=== PATIENT | male | born 1990 | race Hispanic/Latino ===

== ENCOUNTER 2024-07-06 12:13 | Emergency (ER) | payer SELFPAY ==
[2024-07-06 13:08] LABS: Absolute Basophils 0.1 K/uL (0-0.5); Absolute Eosinophils 0.2 K/uL (0-0.5); Absolute Lymphocytes (CBC) 1.8 K/uL (0.7-4.9); Absolute Monocytes 0.6 K/uL (0.1-1.3); Absolute Neutrophil 5.3 K/uL (1.8-8.0); Basophils % 0.6 % (0-1.3); Hematocrit 44.3 % (39.6-49.0); Hemoglobin 14.3 g/dL (13.6-17.9); Lymphocytes % 22.5 % (15.3-44.8); MCH 27.4 pg (27.0-35.0); MCHC 32.4 g/dL (32.0-36.0); MCV 84.4 fL (80-100); MPV 7.4 fL (7.6-11.3); Monocytes % 7.7 % (3.3-12.3); Neutrophils % 66.2 % (41.7-73.7); Platelets 373 thou/uL (152-406); RBC Red Blood Cell Count 5.24 M/uL (4.33-5.43); Red Cell Distribution Width 13.3 % (12.1-15.2)
[2024-07-06 13:26] LABS: Albumin 3.3 g/dL (3.4-5.0); Albumin/Globulin Ratio 0.8 (1.1-1.8); Bilirubin Total 0.5 mg/dL (0.2-1.0); Globulin 3.9 g/dL (2.3-3.5); Protein, Total 7.2 g/dL (6.4-8.2)
--- NOTE | 2024-07-06 14:12 | RAD REPORT ---
EXAMINATION: CT ABDOMEN AND PELVIS WITH CONTRAST CLINICAL INDICATION: Abdominal pain TECHNIQUE: CT abdomen and pelvis was performed, after the administration of 100 cc Isovue-300.. Sagit valeria and coronal reconstructions were obtained. One or more of the following dose reduction techniques were used: Automated exposure control, adjustment of the mA and kV according to patient si ze, and iterative reconstruction. Unless otherwise specified, incidental findings do not require dedicated imaging follow-up. [id number]. Oral contrast was not given which limits evaluation of bowel and appendix. COMPARISON: .None FINDINGS: Mild fatty liver. The spleen, pancreas, adrenals and kidneys appear unremarkable No evidence of diverticulitis. Normal appendix. Small right inguinal hernia. Small umbilical hernia Cholelithiasis. Gallbladder wall is not thickened. : IMPRESSION: Cholelithiasis without evidence of cholecystitis
--- NOTE | 2024-07-06 14:45 | EDPHYS ---
Physician Documentation [facility] Name: Tej Cedeño Age: 34 yrs Sex: Male : 1990 Arrival Date: 07/06/2024 Time: 12:13 Bed 4 Private MD: ED Physician Chidi Miles HPI: 07/06 17:43 This 34 yrs old Male presents to ER via Ambulatory with complaints of Rectal dr5 Pain. 17:49 Patient is a 34-year-old male presenting with rectal pain that started last Sunday. dr5 Patient states his girlfriend put Preparation H that mildly improved symptoms. Patient denies rectal bleeding, fever, testicular pain.. Historical: - Allergies: 12:25 No Known Allergies; cm10 - Home Meds: 12:25 None [Active]; cm10 - PMHx: 12:25 None; cm10 - Immunization history:: Adult Immunizations up to date. - Infectious Disease History:: Denies. - Social history:: Smoking status: Patient denies any tobacco usage or history of. ROS: 17:49 Constitutional: as per hpi dr5 Exam: 17:49 Constitutional: This is a well developed, well nourished patient who is awake, alert, dr5 and in no acute distress. Head/Face: Normocephalic, atraumatic. Eyes: Pupils equal round and reactive to light, extra-ocular motions intact. Lids and lashes normal. Conjunctiva and sclera are non-icteric and not injected. Cornea within normal limits. Periorbital areas with no swelling, redness, or edema. Neck: Trachea midline, no thyromegaly or masses palpated, and no cervical lymphadenopathy. Supple, full range of motion without nuchal rigidity, or vertebral point tenderness. No Meningismus. Chest/axilla: Normal chest wall appearance and motion. Nontender with no deformity. No lesions are appreciated. Cardiovascular: Regular rate and rhythm with a normal S1 and S2. Normal PMI, no JVD. No pulse deficits. Respiratory: Lungs have equal breath sounds bilaterally, clear to auscultation. No rales, rhonchi or wheezes noted. No increased work of breathing, no retractions or nasal flaring. 17:49 Neuro: Awake and alert, GCS 15, oriented to person, place, time, and situation. Cranial nerves II-XII grossly intact. Motor strength 5/5 in all extremities. Sensory grossly intact. Cerebellar exam normal. Normal gait. 17:49 Abdomen/GI: Inspection: obese Bowel sounds: normal, Palpation: abdomen is soft and non-tender, in all quadrants, 17:49 : Rectal exam: Rectal tone: normal, Perineal sensation Normal Stool: hemorrhoid(s), are not appreciated, no acute changes, mass, is not appreciated, fissure, is not appreciated, Claribel Grande. Vital Signs: 12:24 BP 135 / 90; Pulse 100; Resp 15; Temp 97.2(TE); Pulse Ox 95% on R/A; Weight 158.76 kg; cm10 Height 6 ft. 1 in. ; Pain 10/10; 14:30 BP 127 / 85; Pulse 91; Resp 16; Temp 97.5; Pulse Ox 97% ; bp 12:24 Body Mass Index 46.18 (158.76 kg, 185.42 cm) cm10 12:24 Pain Scale: Adult cm10 MDM: 13:34 Medical Screening Exam initiated dr5 17:49 Differential diagnosis: hemorrhoids, fissure, abscess. Data reviewed: vital signs, dr5 nurses notes, lab test result(s), radiologic studies, CT scan. I considered the following discharge prescriptions or medication management in the emergency department Medications were administered in the Emergency Department. See MAR. Care significantly affected by the following Social Determinants of Health: Poor access to healthcare and/or lack of insurance, Poor access to transportation, Problems related to employment. 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 ED course: Labs and CT results printed and reviewed with patient. Exam did not show any acute findings. Will give antibiotics in case patient has developing abscess. Recommended patient follow-up with primary care doctor and GI doctor as needed.. 07/06 12:26 Order name: CBC with Diff; Complete Time: 13:37 cm10 07/06 12:26 Order name: CMP; Complete Time: 13:37 cm10 07/06 12:26 Order name: Lipase; Complete Time: 13:37 cm10 07/06 13:01 Order name: CT Abd/Pelvis - IV Contrast Only; Complete Time: 14:14 bp 07/06 12:26 Order name: IV Saline Lock; Complete Time: 12:58 cm10 07/06 12:26 Order name: Labs collected and sent; Complete Time: 12:58 cm10 Administered Medications: No medications were administered Disposition Summary: 07/06/24 14:44 Discharge Ordered Notes: Location: Home dr5 Condition: Stable dr5 Diagnosis - Other cholelithiasis without obstruction dr5 - Unilateral inguinal hernia, without obstruction or gangrene dr5 Followup: dr5 - With: Emergency Department - When: As needed - Reason: Worsening of condition Followup: dr5 - With: Private Physician - When: 1 - 2 days - Reason: Recheck today's complaints, Continuance of care, Re-evaluation by your physician Discharge Instructions: - Discharge Summary Sheet dr5 - Rectal Bleeding dr5 - Cholelithiasis dr5 - Colorectal Cancer Screening dr5 Forms: - Work release form dr5 - Medication Reconciliation Form dr5 - Antibiotic Education dr5 - Patient Portal Instructions dr5 - Leadership Thank You Letter dr5 Prescriptions: - Augmentin 875-125 mg Oral Tablet - take 1 tablet ORAL route every 12 hours for 10 days; 20 tablet; Refills: 0, dr5 Product Selection Permitted - Tramadol 50 mg Oral Tablet - take 1 tablet ORAL route every 8 hours as needed; 12 tablet; Refills: 0, dr5 Product Selection Permitted Signatures: Dispatcher [employer] Yolanda Easton RN RN cm10 Jg Ya, SCI[employer] GLASS [employer]OWER-C SCIENTIFIC [employer]ASS [employer]OWER-Cdr5 Corrections: (The following items were deleted from the chart) 13: 13:01 Abdomen Pelvis W Con+CT.RAD.BRZ ordered. EDMS EDMS
--- NOTE | 2024-07-06 14:45 | ER ---
Nurse's Notes [facility] Name: Tej Cedeño Age: 34 yrs Sex: Male : 1990 Arrival Date: 07/06/2024 Time: 12:13 Bed 4 Private MD: Diagnosis: Other cholelithiasis without obstruction;Unilateral inguinal hernia, without obstruction or gangrene Presentation: 07/06 12:24 Chief complaint: Patient states: RECTAL PAIN AND RLQ ABDOMINAL PAIN ONSET SUNDAY. PT cm10 STATES THAT THE RECTAL PAIN IS WORSE WHEN TRYING TO USE THE RESTROOM AND WHEN SITTING. Coronavirus screen: Client denies travel out of the [place] in the last 14 days. Ebola Screen: Patient denies travel to an Ebola-affected area in the 21 days before illness onset. No symptoms or risks identified at this time. Initial Sepsis Screen: Does the patient meet any 2 criteria? No. Patient's initial sepsis screen is negative. Does the patient have a suspected source of infection? No. Patient's initial sepsis screen is negative. Risk Assessment: Do you want to hurt yourself or someone else? Patient reports no desire to harm self or others. Onset of symptoms was July 06, 2024. 12:24 Method Of Arrival: Ambulatory cm10 12:24 Acuity: DOROTHY 3 cm10 Triage Assessment: 12:25 General: Appears in no apparent distress. uncomfortable, Behavior is calm, cooperative. cm10 Neuro: No deficits noted. Level of Consciousness is awake, alert, obeys commands, Oriented to person, place, time, situation, Appropriate for age. Respiratory: No deficits noted. Airway is patent Respiratory effort is even, unlabored, Respiratory pattern is regular, symmetrical. Musculoskeletal: No deficits noted. Range of motion: intact in all extremities. Historical: - Allergies: 12:25 No Known Allergies; cm10 - Home Meds: 12:25 None [Active]; cm10 - PMHx: 12:25 None; cm10 - Immunization history:: Adult Immunizations up to date. - Infectious Disease History:: Denies. - Social history:: Smoking status: Patient denies any tobacco usage or history of. Screenin:30 [facility] ED Fall Risk Assessment (Adult) History of falling in the last 3 months, bp including since admission No falls in past 3 months (0 pts) Confusion or Disorientation No (0 pts) Intoxicated or Sedated No (0 pts) Impaired Gait No (0 pts) Mobility Assist Device Used No (0 pt) Altered Elimination No (0 pt) Score/Fall Risk Level 0 - 2 = Low Risk Oriented to surroundings. Abuse screen: Denies threats or abuse. Denies injuries from another. Nutritional screening: No deficits noted. Tuberculosis screening: No symptoms or risk factors identified. Assessment: 12:30 General: Appears in no apparent distress. uncomfortable, obese. bp 14:30 Reassessment: Patient appears in no apparent distress at this time. Patient is alert, bp oriented x 3, equal unlabored respirations, skin warm/dry/pink. Vital Signs: 12:24 BP 135 / 90; Pulse 100; Resp 15; Temp 97.2(TE); Pulse Ox 95% on R/A; Weight 158.76 kg; cm10 Height 6 ft. 1 in. ; Pain 10/10; 14:30 BP 127 / 85; Pulse 91; Resp 16; Temp 97.5; Pulse Ox 97% ; bp 12:24 Body Mass Index 46.18 (158.76 kg, 185.42 cm) cm10 12:24 Pain Scale: Adult cm10 ED Course: 12:14 Patient arrived in ED. mr 12:25 Triage completed. cm10 12:25 Arm band placed on right wrist. Patient placed in waiting room. cm10 12:58 Patient placed in an exam room, on a stretcher. ll1 12:58 CBC with Diff Sent. cm10 12:58 CMP Sent. cm10 12:58 Lipase Sent. cm10 12:58 Initial lab(s) drawn, by tx, sent to lab. Inserted saline lock: 20 gauge in right cm10 antecubital area, using aseptic technique. Blood collected. Flushed with 10 mL NS. 12:59 Dany Johansen, ATIYA is Primary Nurse. bp 13:34 Jg Ya FNP-C is PHCP. dr5 13:34 Chidi Miles MD is Attending Physician. dr5 13:56 CT Abd/Pelvis - IV Contrast Only In Process Unspecified. EDMS 14:30 Patient has correct armband on for positive identification. bp 14:30 No provider procedures requiring assistance completed. IV discontinued, intact, bp bleeding controlled, No redness/swelling at site. Pressure dressing applied. Administered Medications: No medications were administered Medication: 14:30 VIS not applicable for this client. bp Outcome: 14:44 Discharge ordered by . dr5 15:03 Discharged to home ambulatory, with family, bp 15:03 Condition: stable 15:03 Discharge instructions given to patient, Instructed on discharge instructions, follow up and referral plans. medication usage, Demonstrated understanding of instructions, follow-up care, medications, Prescriptions given X 2, 15:04 Patient left the ED. bp Signatures: Dispatcher [employer] EDAZ Shanthi Mir, Gerald Reg mr Dany Johansen, RN RN bp Shubham Grande RN RN ll1 Yolanda Fletcher RN RN cm10 Jg Ya, ASPHALT COATER-C ASPHALT COATER-Cdr5
[2024-07-06 15:28] VITALS: BP 127/85; TEMP 97.5; O2SAT 97
== END 2024-07-06 15:04 | disposition home or self-care (01) ==
LOC: ER 12:13
DX: K80.80 Other cholelithiasis without obstruction (principal); K40.90 Unilateral inguinal hernia, without obstruction or gangrene, not specified as recurrent
CPT/HCPCS: 36415; 74177; 80053; 83690; 85025; 99284; Q9967

== ENCOUNTER 2024-08-04 21:48 | Emergency (ER) | payer BC, SELFPAY ==
[2024-08-04] MEDS ORDERED: KETOROLAC 30 MG/ML INJ ONE (21:59)
[2024-08-04] MEDS ORDERED: ONDANSETRON 4 MG/2 ML VIAL ONE (21:59)
[2024-08-04] MEDS ORDERED: MORPHINE 4 MG/ML SYR ONE ×2 (21:59→23:51)
[2024-08-04 22:31] LABS: Absolute Basophils 0.1 K/uL (0-0.5); Absolute Eosinophils 0.2 K/uL (0-0.5); Absolute Lymphocytes (CBC) 2.7 K/uL (0.7-4.9); Absolute Monocytes 0.8 K/uL (0.1-1.3); Absolute Neutrophil 6.6 K/uL (1.8-8.0); Eosinophils % 2.2 % (0-4.4); Hemoglobin 14.9 g/dL (13.6-17.9); MCH 27.7 pg (27.0-35.0); MCHC 33.8 g/dL (32.0-36.0); MCV 82.2 fL (80-100); MPV 7.3 fL (7.6-11.3); Monocytes % 7.6 % (3.3-12.3); Neutrophils % 63.2 % (41.7-73.7); Platelets 378 thou/uL (152-406); RBC Red Blood Cell Count 5.36 M/uL (4.33-5.43); Red Cell Distribution Width 13.2 % (12.1-15.2)
[2024-08-04 22:42] LABS: Albumin 3.5 g/dL (3.4-5.0); Albumin/Globulin Ratio 0.8 (1.1-1.8); Anion Gap 8.6 mEq/L (5.0-15.0); Bilirubin Total 0.6 mg/dL (0.2-1.0); Globulin 4.4 g/dL (2.3-3.5); Potassium 3.6 mEq/L (3.5-5.1); Protein, Total 7.9 g/dL (6.4-8.2)
[2024-08-04] MEDS ORDERED: KETAMINE HCL IN 0.9 % NACL 50 MG/5 ML SYRINGE IV ONE (23:05)
--- NOTE | 2024-08-05 00:26 | RAD REPORT ---
EXAM: CT abdomen and pelvis without intravenous contrast CLINICAL DATA: 34 years Male FLANK PAIN TECHNICAL DATA: Axial CT imaging of the abdomen and pelvis was performed without oral or intravenous contrast. Sagi ttal and coronal reconstructed images were then performed. The CT study is performed according to ALARA (as low as reasonably achievable) or ALARA/IMAGE GENTLY, with automatic adjustment of mA and/or kV according to patient size. Performed on: 08/04/2024 at 10:35 PM Comparison: CT abdomen and pelvis with contrast performed on 07/06/2024. FINDINGS: Lung bases: There are occasional calcified granulomata within the lung bases. There is a 4 mm noncalc ified subpleural nodule along the left lateral hemithorax (series 201, image 2), likely benign. The lung bases are otherwise clear. The heart is normal in size. Liver: The liver is normal in size and configuration. No focal hepatic abnormalities are appreciated on this unenhanced scan. There is decreased attenuation of the liver consistent with hepatic steatosis. Spleen: The spleen is normal in size, configuration and attenuation. No focal splenic abnormalities a re appreciated on this unenhanced scan. Gallbladder and bile duct: The gallbladder is well-distended and contains a 1.1 cm gallstone in the neck of the gallbladder. There is no biliary ductal dilatation. Pancreas: The pancreas is grossly normal in size and configuration. Adrenal Glands: The adrenal glands are normal in size and configuration. Kidneys: The kidneys are normal in size and configuration. There is no evidence of hydronephrosis. Th ere is no evidence of nephrolithiasis. No focal renal abnormalities are identified. Stomach: The stomach is grossly normal. There is no definite hiatal hernia. Bowel: The bowel gas pattern is non specific and non obstructive. Appendix: The appendix is normal. Free air: There is no evidence of free air. Free fluid: There is no evidence of free fluid. Vasculature: The aorta is normal in caliber and contour. The inferior vena cava is grossly unremarkab le. Lymphadenopathy: No pathologic lymphadenopathy is identified. Bladder: The bladder is incompletely distended on this examination.. Reproductive: The prostate gland is grossly within normal limits. Bones: No acute osseous abnormalities are identified. Soft tissues: No acute soft tissue abnormalities are identified. There is a small fat-containing vent ral umbilical hernia. IMPRESSION: 1. No evidence of acute intra-abdominal or intrapelvic pathology. There is no evidence of urinary t ract calcification or urinary tract obstruction. 2. Cholelithiasis without evidence of biliary ductal dilatation. 3. Fatty infiltration of the liver. 4. Evidence of prior granulomatous disease. 5. Small fat-containing ventral umbilical hernia. Electronically signed by: Larissa Marshall DO 08/05/2024 12:20 AM [facility] Due to temporary technical issues with the PACS/[employer] reporting system, reports are being tristin d by the in-house radiologist without review as a courtesy to ensure prompt reporting the interpreting radiologist is fully responsible for the content of the report. Transcribed Date/Time: 08/05/2024 12:26 AM
--- NOTE | 2024-08-05 00:43 | EDPHYS ---
Physician Documentation [facility] Name: Tej Cedeño Age: 34 yrs Sex: Male : 1990 Arrival Date: 08/04/2024 Time: 21:48 Bed 2 Private MD: ED Physician Juan Jose Jamil HPI: 08/04 22:24 This 34 yrs old Male presents to ER via Wheelchair with complaints of Back ec2 Pain, Abdominal Pain, Possible Kidney Stone. 22:24 Patient arrives today for evaluation of R flank pain. Patient reports pain started in ec2 the right flank into the right abdomen. No reported urinary complaints. No significant medical problems. No history of kidney stones.. Historical: - Allergies: 21:58 No Known Allergies; ha1 - Home Meds: 21:58 adipex [Active]; ha1 - PMHx: 21:58 None; ha1 - Immunization history:: Adult Immunizations up to date. - Infectious Disease History:: Denies. - Social history:: Smoking status: Patient denies any tobacco usage or history of. ROS: 22:24 Constitutional: as per hpi ec2 Exam: 22:24 Constitutional: GEN: NAD Head: atraumatic Eyes: EOMI Ears: External ears are ec2 normal. CV: regular rate LUNGS: no respiratory distress ABD: non-distended, soft, tender in the right abdomen, right CVA TTP. SKIN: no evidence of rashes MSK: no evidence of trauma Vital Signs: 21:57 Weight 163.29 kg; Height 6 ft. 0 in. ; ha1 23:09 BP 129 / 105; Pulse 111; Resp 18 S; Pulse Ox 99% on R/A; br2 23:10 BP 120 / 94; Pulse 94; Resp 18; Pulse Ox 94% ; Pain 7/10; br2 08/05 00:10 BP 131 / 89; Pulse 83; Resp 18; Pulse Ox 93% on R/A; Pain 0/10; br2 08/04 21:57 Body Mass Index 48.82 (163.29 kg, 182.88 cm) ha1 23:10 Pain Scale: Adult br2 08/05 00:10 Pain Scale: Adult br2 MDM: 08/04 21:51 Medical Screening Exam initiated ec2 22:24 Data reviewed: vital signs, nurses notes. ED course: Patient arrives today for right ec2 flank pain. Examination of abdominal findings as above. Lab work, urine studies, CT imaging ordered. Differential diagnosis includes processes such as ureteral stone, urinary tract infection, diverticulitis.. 08/05 00:42 ED course: CT imaging nonactionable. Will refer to Dr. Fletcher for gallbladder ec2 evaluation. Will discharge home. Return precautions given.. 08/04 21:54 Order name: CBC with Diff; Complete Time: 23:03 ec2 08/04 21:54 Order name: CMP; Complete Time: 23:03 ec2 08/04 21:54 Order name: Lipase; Complete Time: 23:03 ec2 08/04 21:54 Order name: CT Abd/Pelvis - Without Contrast ec2 08/04 21:54 Order name: IV Saline Lock; Complete Time: 22:13 ec2 08/04 21:54 Order name: Labs collected and sent; Complete Time: 22:13 ec2 08/04 21:54 Order name: NPO; Complete Time: 22:14 ec2 Administered Medications: 08/04 22:00 Drug: TORadol - Ketorolac IVP 15 mg IVP once Route: IVP; Site: right antecubital; jj7 22:30 Follow up: Response: No adverse reaction br2 22:00 Drug: Ondansetron IVP 4 mg IVP once; over 2 minutes Route: IVP; Site: right antecubital;jj7 22:30 Follow up: Response: No adverse reaction br2 22:00 Drug: morphine IVP or IV 4 mg IVP once over 4 mins Route: IVP; Infused Over: 4 mins; jj7 Site: right antecubital; 22:30 Follow up: Response: No adverse reaction br2 23:08 Drug: Ketamine IVP 25 mg IVP once Route: IVP; Site: right antecubital; br2 23:55 Drug: morphine IVP or IV 8 mg IVP once over 4 mins Route: IVP; Infused Over: 4 mins; br2 Site: right antecubital; Disposition Summary: 08/05/24 00:43 Discharge Ordered Notes: Location: Home ec2 Condition: Stable ec2 Diagnosis - Other cholelithiasis without obstruction ec2 Followup: ec2 - With: Abraham Fletcher MD - When: - Reason: Recheck today's complaints Discharge Instructions: - Discharge Summary Sheet ec2 - Cholelithiasis ec2 Forms: - Work release form ec2 - Family Work Release ec2 - Medication Reconciliation Form ec2 - Antibiotic Education ec2 - Prescription Opioid Use ec2 - Patient Portal Instructions ec2 - Leadership Thank You Letter ec2 Prescriptions: - acetaminophen-codeine 300-30 mg Oral tablet - take 1 tablet ORAL route every 6 hours; 10 tablet; Refills: 0, Product ec2 Selection Permitted Signatures: Dispatcher [employer] Kelsi Enrique RN RN ha1 Gabino Lee RN RN jj7 Juan Jose Jamil MD MD ec2 Tanesha Connell RN RN br2
--- NOTE | 2024-08-05 00:43 | ER ---
Nurse's Notes [facility] Name: Tej Cedeño Age: 34 yrs Sex: Male : 1990 Arrival Date: 08/04/2024 Time: 21:48 Bed 2 Private MD: Diagnosis: Other cholelithiasis without obstruction Presentation: 08/04 21:57 Chief complaint: Patient states: sudden onset of right flank pain. Coronavirus screen: ha1 Client denies travel out of the [place] in the last 14 days. Ebola Screen: No symptoms or risks identified at this time. Initial Sepsis Screen: Does the patient meet any 2 criteria? No. Patient's initial sepsis screen is negative. Does the patient have a suspected source of infection? No. Patient's initial sepsis screen is negative. Risk Assessment: Do you want to hurt yourself or someone else? Patient reports no desire to harm self or others. Onset of symptoms was August 04, 2024. 21:57 Method Of Arrival: Wheelchair ha1 21:57 Acuity: DOROTHY 3 ha1 Historical: - Allergies: 21:58 No Known Allergies; ha1 - Home Meds: 21:58 adipex [Active]; ha1 - PMHx: 21:58 None; ha1 - Immunization history:: Adult Immunizations up to date. - Infectious Disease History:: Denies. - Social history:: Smoking status: Patient denies any tobacco usage or history of. Screenin:05 [facility] ED Fall Risk Assessment (Adult) History of falling in the last 3 months, br2 including since admission No falls in past 3 months (0 pts) Confusion or Disorientation No (0 pts) Intoxicated or Sedated No (0 pts) Impaired Gait No (0 pts) Mobility Assist Device Used No (0 pt) Altered Elimination No (0 pt) Score/Fall Risk Level 0 - 2 = Low Risk Oriented to surroundings. Abuse screen: Denies threats or abuse. Denies injuries from another. Nutritional screening: No deficits noted. Tuberculosis screening: No symptoms or risk factors identified. Assessment: 22:05 Reassessment: Patient and/or family updated on plan of care and expected duration. Pain br2 level reassessed. Patient is alert, oriented x 3, equal unlabored respirations, skin warm/dry/pink. General: Appears uncomfortable, obese, Behavior is anxious. Pain: Complains of pain in right low back Pain radiates to right lower quadrant AND TO RIGHT LOWER LEG Pain currently is 10 out of 10 on a pain scale. Neuro: Perez Agitation-Sedation Scale (RASS): 0 - Alert and Calm Level of Consciousness is awake, alert, obeys commands, Oriented to person, place, time, situation. Cardiovascular: Capillary refill < 3 seconds. Respiratory: Airway is patent Respiratory effort is even, unlabored, Respiratory pattern is regular, symmetrical. GI: Reports lower abdominal pain. 22:05 : No signs and/or symptoms were reported regarding the genitourinary system. Derm: No br2 signs and/or symptoms reported regarding the dermatologic system. 08/05 00:13 Reassessment: Patient and/or family updated on plan of care and expected duration. Pain br2 level reassessed. Patient is alert, oriented x 3, equal unlabored respirations, skin warm/dry/pink. SLEEPING WITH AT BESIDE Patient states feeling better. Patient states symptoms have improved. Vital Signs: 08/04 21:57 Weight 163.29 kg; Height 6 ft. 0 in. ; ha1 23:09 BP 129 / 105; Pulse 111; Resp 18 S; Pulse Ox 99% on R/A; br2 23:10 BP 120 / 94; Pulse 94; Resp 18; Pulse Ox 94% ; Pain 7/10; br2 08/05 00:10 BP 131 / 89; Pulse 83; Resp 18; Pulse Ox 93% on R/A; Pain 0/10; br2 08/04 21:57 Body Mass Index 48.82 (163.29 kg, 182.88 cm) ha1 23:10 Pain Scale: Adult br2 08/05 00:10 Pain Scale: Adult br2 ED Course: 08/04 21:51 Patient arrived in ED. gm2 21:51 Juan Jose Jaiml MD is Attending Physician. ec2 21:58 Triage completed. ha1 22:05 Inserted saline lock: 20 gauge in right antecubital area, using aseptic technique. br2 Blood collected. Flushed with 10 mL NS. 22:05 Patient has correct armband on for positive identification. Bed in low position. Call br2 light in reach. Side rails up X 1. Provided Education on: PLAN OF CARE. 22:12 Gabino Lee RN is Primary Nurse. jj7 22:13 CBC with Diff Sent. jj7 22:13 CMP Sent. jj7 22:13 Lipase Sent. jj7 22:31 CT Abd/Pelvis - Without Contrast In Process Unspecified. EDMS 08/05 00:42 IV discontinued, intact, bleeding controlled, No redness/swelling at site. Pressure br2 dressing applied. 00:43 Abraham Fletcher MD is Referral Physician. ec2 00:56 No provider procedures requiring assistance completed. br2 Administered Medications: 08/04 22:00 Drug: TORadol - Ketorolac IVP 15 mg IVP once Route: IVP; Site: right antecubital; jj7 22:30 Follow up: Response: No adverse reaction br2 22:00 Drug: Ondansetron IVP 4 mg IVP once; over 2 minutes Route: IVP; Site: right antecubital;jj7 22:30 Follow up: Response: No adverse reaction br2 22:00 Drug: morphine IVP or IV 4 mg IVP once over 4 mins Route: IVP; Infused Over: 4 mins; jj7 Site: right antecubital; 22:30 Follow up: Response: No adverse reaction br2 23:08 Drug: Ketamine IVP 25 mg IVP once Route: IVP; Site: right antecubital; br2 23:55 Drug: morphine IVP or IV 8 mg IVP once over 4 mins Route: IVP; Infused Over: 4 mins; br2 Site: right antecubital; Medication: 08/05 01:00 VIS not applicable for this client. br2 Outcome: 00:42 Discharged to home ambulatory, br2 00:42 Condition: improved 00:42 Discharge instructions given to patient, family, Instructed on discharge instructions, follow up and referral plans. Demonstrated understanding of instructions, follow-up care, medications, Prescriptions given X 1, 00:43 Discharge ordered by . ec2 01:00 Patient left the ED. br2 Signatures: Dispatcher [employer] EDOK Kelsi Wells RN RN ha1 Gabino Lee RN RN jj7 Juan Jose Jamil MD MD ec2 Krystin Dempsey gm2 Tanesha Connell RN RN br2 Corrections: (The following items were deleted from the chart) 08/04 22:00 21:57 Chief complaint: Patient states: left flank pain ha1 ha1 22:16 22:05 Pain: Complains of pain in right low back Pain radiates to right lower quadrant br2 Pain currently is 10 out of 10 on a pain scale. br2 08/05 00:15 00:10 BP 131 / 89; Pulse 8bpm; Resp 18bpm; Pulse Ox 93% RA; Pain 0/10, Adult; br2 br2
[2024-08-05 17:18] VITALS: BP 131/89; O2SAT 93
== END 2024-08-05 01:00 | disposition home or self-care (01) ==
LOC: ER 21:48
DX: K80.80 Other cholelithiasis without obstruction (principal)
CPT/HCPCS: 85025; 36415; 83690; 80053; 74176; 96375; 96374; 99284; J2405

== ENCOUNTER 2024-08-26 11:48 | Emergency (ER) | payer BC, SELFPAY ==
[2024-08-26 12:40] LABS: Sqamous Epithelial <5 /HPF (None Seen); Urine Bacteria None Seen /HPF (<20); Urine Bilirubin NEGATIVE (Negative); Urine Blood Negative (Negative); Urine Clarity Clear (Clear); Urine Color Light-Yellow (Yellow); Urine Culture Reflex Order NOT NEEDED; Urine Glucose NEGATIVE (Negative); Urine Ketones NEGATIVE (Negative); Urine Micro Reflex YN NO BILL MICROSCOPIC; Urine Nitrite NEGATIVE (Negative); Urine Protein NEGATIVE (Negative); Urine RBC <5 /HPF (None Seen); Urine Urobilinogen Normal (Normal); Urine WBC <5 /HPF (<5); Urine pH 5.5 (5.0-7.0)
[2024-08-26] MEDS ORDERED: CEFTRIAXONE 500 MG/VIAL ONE (13:01)
[2024-08-26] MEDS ORDERED: metroNIDAZOLE 500 MG TABLET ONE (13:01)
[2024-08-26] MEDS ORDERED: LIDOCAINE 1% MPF 5 ML VIAL ONE (13:02)
--- NOTE | 2024-08-26 13:03 | EDPHYS ---
Physician Documentation [facility] Name: Tej Cedeño Age: 34 yrs Sex: Male : 1990 Arrival Date: 08/26/2024 Time: 11:48 Bed 11 Private MD: ED Physician Benjamín Smith HPI: 08/26 12:10 This 34 yrs old Male presents to ER via Ambulatory with complaints of Urinary ms3 Problem - blood, Penile Discharge, Pain With Urination. 12:10 Tej Cedeño, a 34-year-old male, presents to the Emergency Department reporting a ms3 clearish yellow penile discharge. He has been sexually active with a single female partner for the past six months following a 17-year marriage. He reports that his current partner recently had a urinary tract infection (UTI) and has been on medication for it. Tej reports pain during urination.. Historical: - Allergies: 11:59 Albuterol; jl7 - Home Meds: 11:59 adipex [Active]; jl7 - PMHx: 11:59 adhd; jl7 - Immunization history:: Adult Immunizations unknown. - Infectious Disease History:: Denies. - Social history:: Smoking status: Patient denies any tobacco usage or history of. ROS: 12:10 Constitutional: Negative for fever, and chills. Cardiovascular: Negative for chest ms3 pain, and palpitations. Respiratory: Negative for shortness of breath, cough, wheezing, and pleuritic chest pain, Abdomen/GI: Negative for abdominal pain, nausea, vomiting, diarrhea, and constipation, MS/Extremity: Negative for injury and deformity, Skin: Negative for injury, rash, and discoloration, 12:10 : Positive for burning with urination, penile discharge, Exam: 12:10 Constitutional: This is a well developed, well nourished patient who is awake, alert, ms3 and in no acute distress. Cardiovascular: Regular rate and rhythm with a normal S1 and S2. No gallops, murmurs, or rubs. Normal PMI, no JVD. No pulse deficits. Respiratory: Lungs have equal breath sounds bilaterally, clear to auscultation and percussion. No rales, rhonchi or wheezes noted. No increased work of breathing, no retractions or nasal flaring. Abdomen/GI: Soft, non-tender, with normal bowel sounds. No distension or tympany. No guarding or rebound. No evidence of tenderness throughout. 12:10 : Male external genitalia: normal, cremasteric reflex present right, present left, penile discharge, is absent, swelling: is not appreciated, tenderness, is not appreciated, Sexual behavior: the patient is sexually active, and reports a single partner, 12:28 ECG was reviewed by the Attending Physician. ms3 Vital Signs: 11:58 BP 128 / 91; Pulse 99; Resp 17; Temp 97.9; Pulse Ox 96% ; Weight 151.95 kg; Height 6 jl7 ft. 1 in. ; 14:06 BP 121 / 81; Pulse 88; Resp 17; Pulse Ox 96% ; ll1 11:58 Body Mass Index 44.20 (151.95 kg, 185.42 cm) jl7 MDM: 12:04 Medical Screening Exam initiated ms3 12:10 Differential diagnosis: UTI, STI vs Dysuria. ms3 15:25 Data reviewed: vital signs, nurses notes, lab test result(s), and as a result, I will ms3 discharge patient. I considered the following discharge prescriptions or medication management in the emergency department Medications were administered in the Emergency Department. See MAR. Counseling: I had a detailed discussion with the patient and/or guardian regarding the historical points, exam findings, and any diagnostic results supporting the discharge/admit diagnosis, lab results, the need for outpatient follow up, to return to the emergency department if symptoms worsen or persist or if there are any questions or concerns that arise at home. Special discussion: I discussed with the patient/guardian in detail that at this point there is no indication for admission to the hospital. It is understood, however, that if the symptoms persist or worsen the patient needs to return immediately for re-evaluation. ED course: Discussed patient's symptoms with patient. Discussed urinalysis with patient and his significant other. Patient empirically treated for STIs. GC probe urine pending. Patient to follow-up with primary care physician in 2 to 3 days. Patient understands and agrees with plan. All questions were answered. Return precautions discussed include worsening symptoms, or any other concerns.. 08/26 12:05 Order name: Urinalysis W/Microscopic; Complete Time: 12:53 ut3 08/26 12:05 Order name: GC (Marcello/Chl) Probe CX/URE (Do not order if pt is under 13, order Culture ms3 instead) EC:28 Rate is 94 beats/min. Rhythm is regular. QRS [place] is Normal. [place] interval is normal. QRS ms3 interval is normal. Clinical impression: Normal ECG. Interpreted by me. Reviewed by me. Administered Medications: 13:40 Drug: Rocephin (cefTRIAXone) IM 500 mg IM once Route: IM; Site: left gluteus; ll1 14:05 Follow up: Response: No adverse reaction ll1 13:40 Drug: metroNIDAZOLE PO 2000 mg PO once Route: PO; ll1 14:05 Follow up: Response: No adverse reaction ll1 Disposition Summary: 08/26/24 13:02 Discharge Ordered Notes: Location: Home ms3 Condition: Stable ms3 Diagnosis - Nonspecific urethritis ms3 Followup: ms3 - With: Bryant Chavez DO - When: 2 - 3 days - Reason: Recheck today's complaints Discharge Instructions: - Discharge Summary Sheet ms3 - Urethritis, Adult ms3 Forms: - Medication Reconciliation Form ms3 - Antibiotic Education ms3 - Prescription Opioid Use ms3 - Patient Portal Instructions ms3 - Leadership Thank You Letter ms3 Prescriptions: - Doxycycline Hyclate 100 mg Oral tablet - take 1 tablet ORAL route every 12 hours; 14 tablet; Refills: 0, Product ms3 Selection Permitted Signatures: Dispatcher [employer] Diego Allen RN RN Shubham Richardson RN RN ll1 Benjamín Smith DO DO ms3 Corrections: (The following items were deleted from the chart) 12:00 11:59 Allergies: No Known Allergies; sharon jl7 12:06 12:06 Urinalysis W/Microscopic+U.LAB.BRZ ordered. EDMS EDMS
--- NOTE | 2024-08-26 13:03 | ER ---
Nurse's Notes [facility] Name: Tej Cedeño Age: 34 yrs Sex: Male : 1990 Arrival Date: 08/26/2024 Time: 11:48 Bed 11 Private MD: Diagnosis: Nonspecific urethritis Presentation: 08/26 11:58 Chief complaint: Patient states: Pain with urination, blood and yellowish discharge x 4 jl7 days. Coronavirus screen: At this time, the client does not indicate any symptoms associated with coronavirus-19. Ebola Screen: No symptoms or risks identified at this time. Initial Sepsis Screen: Does the patient meet any 2 criteria? No. Patient's initial sepsis screen is negative. Does the patient have a suspected source of infection? No. Patient's initial sepsis screen is negative. Risk Assessment: Do you want to hurt yourself or someone else? Patient reports no desire to harm self or others. Onset of symptoms was August 23, 2024. 11:58 Method Of Arrival: Ambulatory [facility] 11:58 Acuity: DOROTHY 3 jl7 Triage Assessment: 14:06 Pain: Denies pain. ll1 Historical: - Allergies: 11:59 Albuterol; jl7 - Home Meds: 11:59 adipex [Active]; jl7 - PMHx: 11:59 adhd; jl7 - Immunization history:: Adult Immunizations unknown. - Infectious Disease History:: Denies. - Social history:: Smoking status: Patient denies any tobacco usage or history of. Screenin:17 [facility] ED Fall Risk Assessment (Adult) History of falling in the last 3 months, ll1 including since admission No falls in past 3 months (0 pts) Confusion or Disorientation No (0 pts) Intoxicated or Sedated No (0 pts) Impaired Gait No (0 pts) Mobility Assist Device Used No (0 pt) Altered Elimination No (0 pt) Score/Fall Risk Level 0 - 2 = Low Risk Maintained a safe environment, Hourly rounding (assess needs \T\ fall precautionary measures) done. Abuse screen: Denies threats or abuse. Nutritional screening: No deficits noted. Tuberculosis screening: No symptoms or risk factors identified. Assessment: 12:16 General: Appears in no apparent distress. Behavior is calm, cooperative, appropriate ll1 for age. : Reports burning with urination, Blood and yellow discharge in urine. 13:40 Reassessment: No changes from previously documented assessment. Patient and/or family ll1 updated on plan of care and expected duration. Pain level reassessed. Patient is alert, oriented x 3, equal unlabored respirations, skin warm/dry/pink. 13:57 Reassessment: No changes from previously documented assessment. Patient and/or family ll1 updated on plan of care and expected duration. Pain level reassessed. Vital Signs: 11:58 BP 128 / 91; Pulse 99; Resp 17; Temp 97.9; Pulse Ox 96% ; Weight 151.95 kg; Height 6 7 ft. 1 in. ; 14:06 BP 121 / 81; Pulse 88; Resp 17; Pulse Ox 96% ; ll1 11:58 Body Mass Index 44.20 (151.95 kg, 185.42 cm) 7 ED Course: 11:50 Patient arrived in ED. im 11:53 Benjamín Smith DO is Attending Physician. ms3 11:59 Triage completed. jl7 12:09 Shubham Grande, ATIYA is Primary Nurse. ll1 12:16 GC (Marcello/Chl) Probe CX/URE (Do not order if pt is under 13, order Culture instead) Sent. ll1 12:16 Urinalysis W/Microscopic Sent. ll1 13:02 Bryant Chavez DO is Referral Physician. ms3 13:41 No provider procedures requiring assistance completed. Patient did not have IV access ll1 during this emergency room visit. 13:41 Arm band placed on. ll1 13:41 Patient has correct armband on for positive identification. Call light in reach. ll1 Provided Education on: ER procedures and process. Cardiac monitoring not applicable on this patient. Administered Medications: 13:40 Drug: Rocephin (cefTRIAXone) IM 500 mg IM once Route: IM; Site: left gluteus; ll1 14:05 Follow up: Response: No adverse reaction ll1 13:40 Drug: metroNIDAZOLE PO 2000 mg PO once Route: PO; ll1 14:05 Follow up: Response: No adverse reaction 1 Medication: 13:41 VIS not applicable for this client. ll1 Outcome: 13:02 Discharge ordered by . ms3 13:57 Patient left the ED. 7 13:57 Discharged to home ambulatory, ll1 13:57 Condition: stable 13:57 Discharge instructions given to patient, Instructed on discharge instructions, follow up and referral plans. medication usage, Demonstrated understanding of instructions, follow-up care, medications, Prescriptions given X 1, Signatures: Diego Robledo RN RN jl7 Shubham Grande RN RN ll1 Benjamín Smith DO DO ms3 Courtney De Anda Corrections: (The following items were deleted from the chart) 12:00 11:59 Allergies: No Known Allergies; sharon herrera
[2024-08-26 14:01] VITALS: BP 128/91; TEMP 97.9; O2SAT 96
== END 2024-08-26 13:57 | disposition home or self-care (01) ==
LOC: ER 11:48
DX: N34.1 Nonspecific urethritis (principal)
CPT/HCPCS: 81001; 87490; 87590; J2003